=== PATIENT | male | born 1970 | race Caucasian/White ===

== ENCOUNTER → 2022-12-26 | Emergency (ER) | payer OTHER ==
[~2022-12-26] VITALS: Ht 177.8 cm; Wt 85.3 kg
== END | disposition left against medical advice (07) ==
LOC: ER 09:58
DX: R07.9 Chest pain, unspecified (principal)

== ENCOUNTER 2024-10-22 11:37 | Emergency (ER) | payer OTHER ==
[~2024-10-22] VITALS: Ht 175.3 cm; Wt 86.2 kg
[2024-10-22 13:38] LABS: HEMATOCRIT 43.7 % (39.0-48.0); HEMOGLOBIN 15.2 g/dL (13-16.00); MEAN CELL VOLUME 87.8 fL (80.0-100.00); MEAN CORPUSCULAR HEMOGLOBIN 30.4 pg (27.00-32.0); MEAN CORPUSCULAR HGB CONC 34.7 g/dl (32.0-36.0); PLATELET COUNT 189 K/uL (150-450); RED BLOOD COUNT 4.98 M/uL (4.00-6.00); RED CELL DISTRIBUTION WIDTH 12.4 % (11.5-14.5)
[2024-10-22 13:48] LABS: PH,URINE 5.5 (5.0-8.0); URINE APPEARANCE Clear; URINE BILIRRUBIN Negative (NEGATIVE); URINE BLOOD Large; URINE COLOR Yellow; URINE GLUCOSE Negative (NEGATIVE); URINE KETONE Negative (NEGATIVE); URINE LEUKOCYTE Negative; URINE NITRATE Negative; URINE PROTEIN Negative (NEGATIVE); URINE UROBILINOGEN 0.2 E.U./dl
[2024-10-22 13:57] LABS: URINE BACTERIA 8.5 uL (0.0-1933); URINE RBC 106.2 uL (0.0-20.8)
[2024-10-22 14:00] LABS: URINE EPITHELIAL CELLS 0.4 uL (0.0-38.8)
== END 2024-10-22 17:25 | disposition home or self-care (01) ==
LOC: ER 11:39
PROVIDERS: Emergency Medicine
DX: R20.0 Anesthesia of skin (principal)